=== PATIENT | male | born 1940 | race Hispanic/Latino ===

== ENCOUNTER → 2021-06-08 | Day surgery (SDC) | payer OTHER, MEDICARE ==
[~2021-06-08] MED LIST: ATROPINE SULFATE 1 MG/ML VIAL ONE; FENTANYL CITRATE/PF 100MCG/2 ML INJ ONE; FLOMAX0.4 MG PO; MIDAZOLAM HCL 2 MG/2 ML VIAL ONE; MULTI-VITAMIN1 EACH PO; MYRBETRIQ25 MG PO; OMEPRAZOLE40 MG PO; OR PHACO EYE KIT ONE; POLYETHYLENE GL17 GM PO; POVIDONE IODINE 0.05% 0.05 % ML PO ONE; PREOP PHACO EYE KIT ONE
[2021-06-08 13:16] VITALS: BP 110/70
== END | disposition home or self-care (01) ==
LOC: OR 10:39
PROVIDERS: ATTEND Ophthalmology
DX: H25.12 Age-related nuclear cataract, left eye (principal); K21.9 Gastro-esophageal reflux disease without esophagitis; N40.0 Benign prostatic hyperplasia without lower urinary tract symptoms; R32 Unspecified urinary incontinence; F03.90 Unspecified dementia, unspecified severity, without behavioral disturbance, psychotic disturbance, mood disturbance, and anxiety; F41.9 Anxiety disorder, unspecified; Z01.812 Encounter for preprocedural laboratory examination; Z20.822 Contact with and (suspected) exposure to COVID-19
CPT/HCPCS: 66984; J0461; U0002; J2250; J3010